=== PATIENT | male | born 1960 | race Caucasian/White ===

== ENCOUNTER → 2017-12-18 | Outpatient (CLI) | payer SELFPAY | END | disposition home or self-care (01) | LOC: RAD 09:10 | DX: M79.89 Other specified soft tissue disorders (principal) | CPT/HCPCS: 73600 ==

== ENCOUNTER → 2021-03-22 | Outpatient (CLI) | payer OTHER ==
--- NOTE | 2021-03-22 13:03 | KCIC ---
EXAM: CT coronary artery calcium screening; radiologist over read. HISTORY: Coronary artery calcium screening. Hypertension. TECHNIQUE: Computed tomographic images of the chest were obtained without contrast. Multiplanar refor matting was performed. *One or more of the following individualized dose reduction techniques were utilized for this examina tion: 1. Automated exposure control. 2. Adjustment of the mA and/or kV according to patient size. 3. Use of iterative reconstruction technique. COMPARISON: None. FINDINGS: The heart is normal in size. The aorta is normal in caliber. There is calcified atheroscler otic plaque involving the coronary arteries. There are calcified left hilar and perihilar granulomas. There is no infiltrate, pleural effusion or pneumothorax. There is no suspicious pulmonary nodule. T here is no acute finding involving the upper abdomen or osseous structures. Coronary artery calcium score: Left main artery - 0 Left anterior descending - 13.7 Left circumflex - 15.8 Right coronary artery - 8.6 Posterior descending artery - 0 TOTAL = 38.1 IMPRESSION: 1. Calcified atherosclerotic plaque involving the coronary arteries. The coronary artery calcium scor e is 38.1. There is mild atherosclerotic plaque. 2. No acute thoracic finding. Electronically signed by: Olamide Hernández MD (03/22/2021 1:00 PM) [id number]
== END ==
LOC: KCIC CT 12:21
PROVIDERS: ATTEND Family Medicine
DX: Z13.6 Encounter for screening for cardiovascular disorders (principal); I25.10 Atherosclerotic heart disease of native coronary artery without angina pectoris
CPT/HCPCS: 75571